=== PATIENT | female | born 1970 | race Caucasian/White ===

== ENCOUNTER 2017-06-15 10:05 | Emergency (ER) | payer SELFPAY ==
[~2017-06-15] VITALS: Ht 165.1 cm; Wt 102.1 kg
[2017-06-15] MEDS ORDERED: DEXAMETHASONE 10MG/ML PF INJ INJ ONE (11:15)
[2017-06-15 13:22] LABS: STREPTOCOCCUS GRP A ANTIGEN NEGATIVE (NEGATIVE)
[2017-06-15 13:39] LABS: INFLUENZAE A&B ANTIGEN (RAPID) NEGATIVE (NEGATIVE)
[2017-06-15] MEDS ORDERED: DEXAMETHASONE SOD PHOS 10 MG/1 ML VIAL ONE (14:49)
[2017-06-15] MEDS ORDERED: TYLENOL WITH C1 EACH PO (14:53)
[2017-06-15 14:54] VITALS: BP 139/81
[2017-06-15] MEDS ORDERED: AZITHROMYCIN250 MG PO (14:54)
== END 2017-06-15 15:00 | disposition home or self-care (01) ==
LOC: ER 10:05
DX: R50.9 Fever, unspecified (principal); R05 Cough; H92.01 Otalgia, right ear; J02.9 Acute pharyngitis, unspecified
CPT/HCPCS: 83518; 87070; 87400; 99283; J1100

== ENCOUNTER 2022-12-31 15:37 | Emergency (ER) | payer OTHER ==
[~2022-12-31] VITALS: Ht 165.1 cm; Wt 102.1 kg
[~2022-12-31 15:37] MED LIST: AZITHROMYCIN250 MG PO; TYLENOL WITH C1 EACH PO
[2022-12-31 15:45] VITALS: O2SAT 98
[2022-12-31] MEDS ORDERED: METHOCARBAMOL500 MG PO (16:43)
[2022-12-31] MEDS ORDERED: MELOXICAM7.5 MG PO (16:43)
== END 2022-12-31 16:26 | disposition home or self-care (01) ==
LOC: ER 15:52
DX: M62.838 Other muscle spasm (principal); F43.10 Post-traumatic stress disorder, unspecified; I10 Essential (primary) hypertension; F32.A Depression, unspecified
CPT/HCPCS: 99283